=== PATIENT | female | born 1935 | race Caucasian/White ===

== ENCOUNTER 2016-11-24 15:18 | Emergency (ER) | payer MEDICARE ==
[2016-11-24 15:28] VITALS: PULSE 70; RESP 16; TEMP 96.6
[2016-11-24 17:09] VITALS: BP 170/66; O2SAT 97
== END 2016-11-24 17:00 | disposition home or self-care (01) | DRG 914 ==
LOC: ED 15:18
DX: S09.90XA Unspecified injury of head, initial encounter (principal); M25.552 Pain in left hip; W00.0XXA Fall on same level due to ice and snow, initial encounter
CPT/HCPCS: 70450; 73521; 99282; 99283